=== PATIENT | male | born 1990 | race Two or more races ===

== ENCOUNTER 2021-09-20 15:40 | Emergency (ER) | payer SELFPAY ==
[~2021-09-20] VITALS: Ht 182.9 cm; Wt 69.9 kg
--- NOTE | 2021-09-20 15:45 | NUR ---
TO ER BED 12 PT C/O "MT MOUTH FEELS LIKE CLOSING" AFTER HAVING AN ALLERGIC REACTION TO NUTS. PT ATTCHED TO MONITOR, OXYGEN SATURATION AT 96%. DR BARRON AT BEDSIDE.
[2021-09-20] MEDS ORDERED: EPINEPHRINE (1:1000) 1 MG/ML AMPUL ONE (15:48)
[2021-09-20] MEDS ORDERED: diphenhydrAMINE HCL 50 MG/ML VIAL ONE (15:49)
[2021-09-20] MEDS ORDERED: methylPREDNISolone SOD SUCC 125 MG/2ML VIAL ONE (15:49)
[2021-09-20] MEDS ORDERED: IV NS 0.9% 1,000 ML BAG IV ONE (16:00)
[2021-09-20] MEDS ORDERED: methylPREDNISolone SOD SUCC 125 MG/2ML VIAL IV ONE (16:00)
[2021-09-20] MEDS ORDERED: diphenhydrAMINE HCL 50 MG/ML VIAL IV ONE (16:00)
[2021-09-20] MEDS ORDERED: EPINEPHRINE (1:1000) MDV 30 MG/30ML VIAL SUBCUT ONE (16:00)
[2021-09-20] MEDS ORDERED: PRED50TA PO (19:24)
[2021-09-20] MEDS ORDERED: EPIN0.3P3 IM (19:24)
--- NOTE | 2021-09-20 20:25 | NUR ---
PATIENT IS MEDICALLY STABLE FOR D/C. REPORTED FEELING WELL AND READY TO GO. IV removed. Catheter intact and site benign. Pressure and 4x4 applied to site. No bleeding noted.Patient discharged to home in stable condition. Written and verbal after care instructions given. Patient verbalizes understanding of instruction.
[2021-09-20 20:44] VITALS: BP 112/76
== END 2021-09-20 20:45 | disposition home or self-care (01) ==
LOC: ER 15:43
DX: T78.40XA Allergy, unspecified, initial encounter (principal); Z79.899 Other long term (current) drug therapy; X58.XXXA Exposure to other specified factors, initial encounter
CPT/HCPCS: 96361; 96372; 96374; 96375; 99284; J0171 ×2; J1200; J2930; J7030